=== PATIENT | female | born 1980 | race African-American/Black ===

== ENCOUNTER 2024-01-30 09:13 | Emergency (ER) | payer MEDICAID ==
[~2024-01-30] VITALS: Ht 172.7 cm; Wt 81.0 kg
[2024-01-30 09:19] VITALS: O2SAT 100
[2024-01-30 09:51] LABS: BASOPHILS % 0.4 % (0.0-2.0); EOSINOPHILS % 0.4 % (0.0-5.0); HEMATOCRIT. 29.3 % (36.0-48.0); HEMOGLOBIN. 9.2 g/dL (12.0-16.0); LYMPHOCYTES % 24.2 % (20.0-50.0); MEAN CORPUSCULAR HEMOGLOBIN 21.8 pg (28.0-32.0); MEAN CORPUSCULAR HGB CONC 31.3 g/dL (31.0-37.0); MEAN CORPUSCULAR VOLUME 69.6 fL (81.0-99.0); MEAN PLATELET VOLUME 7.8 fl (7.4-10.4); MONOCYTES % 3.5 % (2.0-8.0); NEUTROPHILS % 71.5 % (40.0-76.0); PLATELET 382 x1000/uL (130-400); RED BLOOD CELL COUNT 4.21 mill/uL (4.2-5.4); RED CELL DISTRIBUTION WIDTH 19.8 % (11.6-14.6); WHITE BLOOD COUNT 6.8 x1000/uL (4.5-11.0)
[2024-01-30 09:53] LABS: D-DIMER 1.1 mg/L FEU (<0.50); PROTHROMBIN TIME 10.9 sec (9.6-11.0)
[2024-01-30 09:54] LABS: ADD RBC MORPHOLOGY YES; DIFFERENTIAL COMMENT 1
[2024-01-30 09:55] LABS: CHLORIDE 108 mEq/L (98-107); POTASSIUM 3.7 mEq/L (3.5-5.1); SODIUM 136 mEq/L (136-145)
[2024-01-30 09:56] LABS: CALCIUM 9.7 mg/dL (8.7-10.4); CARBON DIOXIDE 21 mEq/L (21-32); HCG SCREEN NEGATIVE
[2024-01-30 10:01] LABS: CREATININE 0.7 mg/dL (0.6-1.0); GLUCOSE 97 mg/dL (70-105); UREA NITROGEN BLOOD 9 mg/dL (9-23)
[2024-01-30 10:02] LABS: ALANINE AMINOTRANSFERASE 11 IU/L (10-49); ALBUMIN 4.6 g/dL (3.2-4.8); ASPARTATE AMINOTRANSFERASE 17 IU/L (<34)
[2024-01-30 10:03] LABS: BILIRUBIN TOTAL 0.5 mg/dL (0.1-1.0); PROTEIN TOTAL 7.7 g/dL (6.0-8.3)
[2024-01-30 10:04] LABS: TROPONIN I HIGH SENSITIVITY < 4 ng/L (3.0-34)
[2024-01-30 11:07] LABS: ANISOCYTOSIS 2+; MICROCYTOSIS 3+; PLATELET ESTIMATE NORMAL
[2024-01-30] MEDS ORDERED: IOHEXOL-350 100 ML BOTTLE ONE (12:37)
[2024-01-30] MEDS: KETOROLAC 60MG/2ML VIAL IM ONE (14:30)
[2024-01-30 14:48] VITALS: BP 119/70; PULSE 75; RESP 16; TEMP 98.6
== END 2024-01-30 14:48 | disposition home or self-care (01) ==
LOC: ER 09:13
DX: R06.02 Shortness of breath (principal); Z98.890 Other specified postprocedural states
CPT/HCPCS: 80053; 84703; 83880; 83690; 85025; 85379; 85610; 84484; 36415; 71045; 71275; 93005; 96372; 99285; Q9967; J1885; Z7610 ×2

== ENCOUNTER 2024-12-26 16:23 | Emergency (ER) | payer MEDICAID ==
[~2024-12-26] VITALS: Ht 170.2 cm; Wt 81.6 kg
[2024-12-26 16:37] VITALS: O2SAT 98
[2024-12-26 18:03] LABS: BASOPHILS % 0.6 % (0.0-2.0); EOSINOPHILS % 1.5 % (0.0-5.0); HEMATOCRIT. 29.4 % (36.0-48.0); HEMOGLOBIN. 8.9 g/dL (12.0-16.0); LYMPHOCYTES % 33.3 % (20.0-50.0); MEAN CORPUSCULAR HEMOGLOBIN 20.7 pg (28.0-32.0); MEAN CORPUSCULAR HGB CONC 30.1 g/dL (31.0-37.0); MEAN CORPUSCULAR VOLUME 68.6 fL (81.0-99.0); MONOCYTES % 5.2 % (2.0-8.0); NEUTROPHILS % 59.4 % (40.0-76.0); PLATELET 396 x1000/uL (130-400); RED BLOOD CELL COUNT 4.29 mill/uL (4.2-5.4); RED CELL DISTRIBUTION WIDTH 19.5 % (11.6-14.6); WHITE BLOOD COUNT 5.5 x1000/uL (4.5-11.0)
[2024-12-26 18:06] LABS: DIFFERENTIAL COMMENT 1
[2024-12-26 18:07] LABS: ADD RBC MORPHOLOGY YES
[2024-12-26 18:09] LABS: CHLORIDE 104 mEq/L (98-107); POTASSIUM 3.7 mEq/L (3.5-5.1); SODIUM 140 mEq/L (136-145)
[2024-12-26 18:10] LABS: CALCIUM 9.7 mg/dL (8.7-10.4); CARBON DIOXIDE 24 mEq/L (21-32)
[2024-12-26 18:15] LABS: CREATININE 0.9 mg/dL (0.6-1.0); GLUCOSE 132 mg/dL (70-105); UREA NITROGEN BLOOD 12 mg/dL (9-23)
[2024-12-26 18:17] LABS: TROPONIN I HIGH SENSITIVITY < 4 ng/L (3.0-34)
[2024-12-26 18:20] LABS: HYPOCHROMASIA 2+; MICROCYTOSIS 3+; PLATELET ESTIMATE NORMAL; TARGET CELLS 1+
[2024-12-26 19:08] VITALS: BP 122/66; PULSE 80; RESP 16; TEMP 36.7; O2SAT 98
== END 2024-12-26 19:08 ==
LOC: ER 16:23
DX: R07.89 Other chest pain (principal); Z98.890 Other specified postprocedural states
CPT/HCPCS: 36415; 71045; 80048; 84484; 85025; 93005; 99285